=== PATIENT | female | born 1970 | race Two or more races ===

== ENCOUNTER 2021-09-08 12:34 | Emergency (ER) | payer MEDICARE, OTHER ==
[~2021-09-08] VITALS: Ht 165.1 cm; Wt 78.0 kg
[2021-09-08 12:46] VITALS: BP 132/82
== END 2021-09-08 14:01 | disposition home or self-care (01) ==
LOC: ER 12:42
DX: S61.412A Laceration without foreign body of left hand, initial encounter (principal); F32.A Depression, unspecified; Z87.39 Personal history of other diseases of the musculoskeletal system and connective tissue; W25.XXXA Contact with sharp glass, initial encounter; Y93.89 Activity, other specified; Y92.89 Other specified places as the place of occurrence of the external cause; Y99.8 Other external cause status

== ENCOUNTER 2022-05-30 17:28 | Emergency (ER) | payer MEDICARE, OTHER ==
[~2022-05-30] VITALS: Ht 165.1 cm; Wt 80.3 kg
--- NOTE | 2022-05-30 17:30 | NUR ---
RECEIVED PT 52 YRS FEMALE walking in from home s/p fall 2 day go c/o pain and ecchomosis on rt skin of buttock no difformity no pain with movement
--- NOTE | 2022-05-30 17:35 | NUR ---
SEEN by DR. REAL
--- NOTE | 2022-05-30 17:51 | NUR ---
Patient discharged to home in stable condition. Written and verbal after care instructions given. Patient verbalizes understanding of instruction.
[2022-05-30 17:55] VITALS: BP 142/80
== END 2022-05-30 17:55 | disposition home or self-care (01) ==
LOC: ER 17:45
DX: S70.11XA Contusion of right thigh, initial encounter (principal); F32.A Depression, unspecified; W18.30XA Fall on same level, unspecified, initial encounter; Y93.89 Activity, other specified; Y92.89 Other specified places as the place of occurrence of the external cause; Y99.8 Other external cause status

== ENCOUNTER 2022-12-30 15:09 | Emergency (ER) | payer MEDICARE, OTHER ==
[~2022-12-30] VITALS: Ht 165.1 cm; Wt 87.1 kg
[2022-12-30 17:27] VITALS: BP 128/89; TEMP 98.5; O2SAT 99
== END 2022-12-30 17:27 | disposition home or self-care (01) ==
LOC: ER 15:13
DX: M17.11 Unilateral primary osteoarthritis, right knee (principal); F32.A Depression, unspecified
CPT/HCPCS: 73564-TC

== ENCOUNTER → 2023-01-29 | Emergency (ER) | payer MEDICARE, OTHER ==
[~2023-01-29] VITALS: Ht 167.6 cm; Wt 63.5 kg
[~2023-01-29] MED LIST: HYDROCODONE/APAP 5/325MG TABLET PO ONE; IBUPROFEN 600 MG TABLET PO ONE
[2023-01-29 14:25] VITALS: TEMP 98.2
[2023-01-29 15:24] VITALS: BP 134/84; O2SAT 98
== END | disposition home or self-care (01) ==
LOC: ER 14:17
DX: M25.552 Pain in left hip (principal); F32.A Depression, unspecified; Z98.890 Other specified postprocedural states
CPT/HCPCS: 73502

== ENCOUNTER 2023-05-30 14:41 | Emergency (ER) | payer MEDICARE, OTHER ==
[~2023-05-30] VITALS: Ht 165.1 cm; Wt 85.7 kg
[2023-05-30 15:42] LABS: BASOPHILS % (AUTO) 0.2 % (0.0-2.0); EOSINOPHILS # (AUTO) 0.1 K/uL (0.0-0.7); EOSINOPHILS % (AUTO) 1.3 % (0.0-6.0); HEMATOCRIT 39 % (33-45); HEMOGLOBIN 13.3 g/dL (11.5-14.8); LYMPHOCYTES # (AUTO) 1.7 K/uL (0.8-4.8); LYMPHOCYTES % (AUTO) 15.4 % (20.0-44.0); MEAN CORPUSCULAR HEMOGLOBIN 33 PG (26.0-33.0); MEAN CORPUSCULAR HGB CONC 34 g/dl (31.0-36.0); MEAN CORPUSCULAR VOLUME 96 fL (82-100); MONOCYTES # (AUTO) 0.9 K/uL (0.1-1.30); MONOCYTES % (AUTO) 8.6 % (2.0-12.0); NEUTROPHILS # (AUTO) 8.2 K/uL (1.8-8.9); NEUTROPHILS % (AUTO) 74.5 % (43.0-81.0); PLATELET COUNT (AUTO) 281 K/uL (150-450); RED BLOOD CELL COUNT(AUTO) 4.04 MIL/uL (4.0-5.2); RED CELL DISTRIBUTION WIDTH 12.7 % (11.5-15.0)
[2023-05-30 15:56] LABS: ALBUMIN 3.6 g/dL (3.4-5.0); BILIRUBIN,TOTAL 0.4 mg/dL (0.2-1.0); CALCIUM, SERUM 8.8 mg/dL (8.5-10.1); CREATININE 0.7 mg/dL (0.6-1.3); POTASSIUM 3.8 mmol/L (3.5-5.1)
[2023-05-30 16:35] LABS: APPEARANCE,URINE CLEAR (CLEAR); BILIRUBIN,URINE NEGATIVE (NEGATIVE); BLOOD, URINE NEGATIVE Ery/uL (NEGATIVE); COLOR,URINE YELLOW (YELLOW); KETONES,URINE NEGATIVE (NEGATIVE); LEUKOCYTE ESTERASE ,URINE NEGATIVE (NEGATIVE); NITRITE, URINE NEGATIVE (NEGATIVE); PROTEIN,URINE NEGATIVE (NEGATIVE); UGLUCOSE NEGATIVE (NEGATIVE); UROBILINOGEN,URINE 0.2 EU/dL (0.2)
[2023-05-30 16:38] LABS: PREGNANCY TEST URINE QUAL NEGATIVE (NEGATIVE)
[2023-05-30 18:14] VITALS: BP 114/77; TEMP 98.2; O2SAT 98
== END 2023-05-30 18:15 | disposition home or self-care (01) ==
LOC: ER 14:43
DX: K62.5 Hemorrhage of anus and rectum (principal); R10.2 Pelvic and perineal pain; F32.A Depression, unspecified; Z98.890 Other specified postprocedural states
CPT/HCPCS: 36415; 80053-TC; 84703-TC; 85025-TC

== ENCOUNTER 2023-09-25 09:16 | Emergency (ER) | payer MEDICARE ==
[~2023-09-25] VITALS: Ht 165.1 cm; Wt 88.0 kg
[2023-09-25] MEDS ORDERED: IBUPROFEN 400 MG TABLET ONE (09:38)
[2023-09-25] MEDS ORDERED: ACETAMINOPHEN ES 500 MG TABLET ONE (09:38)
[2023-09-25] MEDS: IBUPROFEN 400 MG TABLET PO ONE (09:41)
[2023-09-25] MEDS: ACETAMINOPHEN ES 500 MG TABLET PO ONE (09:41)
[2023-09-25] MEDS ORDERED: KETO10TA2 PO (10:29)
[2023-09-25 10:50] VITALS: BP 127/68; TEMP 98.4; O2SAT 100
== END 2023-09-25 10:50 | disposition home or self-care (01) ==
LOC: ER 09:25
DX: S82.62XA Displaced fracture of lateral malleolus of left fibula, initial encounter for closed fracture (principal); F32.A Depression, unspecified; X50.1XXA Overexertion from prolonged static or awkward postures, initial encounter; Y93.89 Activity, other specified; Y92.89 Other specified places as the place of occurrence of the external cause; Y99.8 Other external cause status
CPT/HCPCS: 73610-TC

== ENCOUNTER 2023-10-01 12:57 | Emergency (ER) | payer MEDICARE ==
[~2023-10-01] VITALS: Ht 167.6 cm; Wt 74.4 kg
[~2023-10-01 12:57] MED LIST changes: -HYDROCODONE/APAP 5/325MG TABLET PO ONE; -IBUPROFEN 600 MG TABLET PO ONE; +KETO10TA2 PO
[2023-10-01 14:08] VITALS: BP 137/89; TEMP 98.7; O2SAT 100
== END 2023-10-01 14:09 | disposition home or self-care (01) ==
LOC: ER 12:57
DX: S82.892D Other fracture of left lower leg, subsequent encounter for closed fracture with routine healing (principal); R58 Hemorrhage, not elsewhere classified; F32.A Depression, unspecified; X58.XXXD Exposure to other specified factors, subsequent encounter

== ENCOUNTER 2024-08-16 11:15 | Inpatient (IN) | payer MEDICARE ==
[~2024-08-16] VITALS: Ht 165.1 cm; Wt 99.8 kg
[2024-08-16] MEDS ORDERED: ONDANSETRON HCL/PF 4 MG/2 ML VIAL ONE (11:47)
[2024-08-16] MEDS ORDERED: KETOROLAC TROMETHAMINE INJ 30 MG/ML VIAL ONE (11:47)
[2024-08-16] MEDS ORDERED: FAMOTIDINE/PF INJ 20 MG/2 ML VIAL IV ONE (11:48)
[2024-08-16 12:13] LABS: CARBON DIOXIDE 25 mmol/L (21-32); CHLORIDE 89 mmol/L (98-107); CREATININE 0.8 mg/dL (0.6-1.3); GLUCOSE 149 mg/dL (74-106); POTASSIUM 3.8 mmol/L (3.5-5.1); SODIUM SERUM 126 mmol/L (136-145); UREA NITROGEN, BLOOD 11 mg/dL (7-18)
[2024-08-16 12:19] LABS: ALANINE AMINOTRANSFERASE 28 U/L (12-78); ALBUMIN 3.7 g/dL (3.4-5.0); ALKALINE PHOSPHATASE 158 U/L (46-116); ASPARTATE AMINOTRANSFERASE 22 U/L (15-37); BILIRUBIN,DIRECT 0.1 mg/dL (0.0-0.2); BILIRUBIN,TOTAL 0.6 mg/dL (0.2-1.0); TOTAL PROTEIN, SERUM 7.5 g/dL (6.4-8.2)
[2024-08-16 12:22] LABS: LIPASE > 375 U/L (16-77)
[2024-08-16] MEDS: IV NS 0.9% 1,000 ML BAG IV ONE (12:27)
[2024-08-16] MEDS: FAMOTIDINE/PF INJ 20 MG/2 ML VIAL IV ONE (12:28)
[2024-08-16] MEDS: ONDANSETRON HCL/PF 4 MG/2 ML VIAL IVP ONE (12:29)
[2024-08-16] MEDS: KETOROLAC TROMETHAMINE INJ 30 MG/ML VIAL IV ONE (12:30)
[2024-08-16 12:31] LABS: BASOPHILS % (AUTO) 0.2 % (0.0-2.0); HEMATOCRIT 48 % (33-45); HEMOGLOBIN 16.4 g/dL (11.5-14.8); LYMPHOCYTES # (AUTO) 1.1 K/uL (0.8-4.8); LYMPHOCYTES % (AUTO) 6.7 % (20.0-44.0); MEAN CORPUSCULAR HEMOGLOBIN 34 PG (26.0-33.0); MEAN CORPUSCULAR HGB CONC 34 g/dl (31.0-36.0); MEAN CORPUSCULAR VOLUME 97 fL (82-100); MONOCYTES % (AUTO) 5.9 % (2.0-12.0); NEUTROPHILS % (AUTO) 87.2 % (43.0-81.0); PLATELET COUNT (AUTO) 290 K/uL (150-450); RED BLOOD CELL COUNT(AUTO) 4.89 MIL/uL (4.0-5.2); RED CELL DISTRIBUTION WIDTH 12.9 % (11.5-15.0); WHITE BLOOD COUNT (AUTO) 16.1 K/uL (4.3-11.0)
[2024-08-16 13:27] LABS: APPEARANCE,URINE CLEAR (CLEAR); BILIRUBIN,URINE NEGATIVE (NEGATIVE); BLOOD, URINE TRACE-INTA Ery/uL (NEGATIVE); COLOR,URINE YELLOW (YELLOW); KETONES,URINE 1+ mg/dL (NEGATIVE); LEUKOCYTE ESTERASE ,URINE NEGATIVE (NEGATIVE); NITRITE, URINE NEGATIVE (NEGATIVE); PH,URINE 6.5 (5.0-8.0); PROTEIN,URINE 2+ mg/dl (NEGATIVE); UGLUCOSE NEGATIVE (NEGATIVE); UROBILINOGEN,URINE 0.2 EU/dL (0.2)
[2024-08-16] MEDS ORDERED: MORPHINE SULFATE INJ 2 MG/ML DISP.SYRIN ONE (13:28)
[2024-08-16] MEDS: MORPHINE SULFATE INJ 2 MG/ML DISP.SYRIN IV ONE (13:32)
[2024-08-16] MEDS ORDERED: GABA600T12 PO (13:35)
[2024-08-16] MEDS ORDERED: MORP15TA PO (13:35)
[2024-08-16] MEDS ORDERED: CYCL10TA9 PO (13:35)
[2024-08-16] MEDS ORDERED: LEVO75TA7 PO (13:35)
[2024-08-16] MEDS ORDERED: DULO60CA64 PO (13:35)
[2024-08-16 14:09] LABS: ADD URINE CULTURE NO; BACTERIA,URINE None seen /HPF (None Seen); RBC,URINE 0-2 /HPF (0-2); SQUAMOUS EPITHELIAL CELL,UR Rare /HPF (None Seen); WBC,URINE NONE SEEN /HPF (0-3)
[2024-08-16] MEDS: HYDROMORPHONE 1 MG/1 ML DISP.SYRIN IV PRN ×2 (15:34→17:39)
[2024-08-16] MEDS ORDERED: LORAZEPAM 1 MG TABLET PO PRN (16:30)
[2024-08-16] MEDS ORDERED: MAGNESIUM HYDROXIDE 30 ML UDC PO PRN (16:30)
[2024-08-16] MEDS ORDERED: ONDANSETRON HCL/PF 4 MG/2 ML VIAL IVP PRN (16:30)
[2024-08-16 17:00] VITALS: BP 151/128; TEMP 98.4; O2SAT 98
[2024-08-16] MEDS: GABAPENTIN 300 MG CAPSULE PO SCH (17:21)
[2024-08-16] MEDS: IV LR 1000 ML 1,000 ML IV PRN (17:22)
[2024-08-16] MEDS: ACETAMINOPHEN 325 MG TABLET PO PRN (20:00)
[2024-08-16 22:01] VITALS: BP 162/78; TEMP 98.4; O2SAT 99
[2024-08-17 04:00] VITALS: BP 135/83; TEMP 98.8; O2SAT 95
[2024-08-17] MEDS: PANTOPRAZOLE 40 MG TABLET.DR PO SCH (07:39)
[2024-08-17 07:58] LABS: BASOPHILS % (AUTO) 0.2 % (0.0-2.0); EOSINOPHILS # (AUTO) 0.1 K/uL (0.0-0.7); EOSINOPHILS % (AUTO) 0.6 % (0.0-6.0); HEMATOCRIT 39 % (33-45); HEMOGLOBIN 13.4 g/dL (11.5-14.8); LYMPHOCYTES # (AUTO) 0.7 K/uL (0.8-4.8); LYMPHOCYTES % (AUTO) 6.8 % (20.0-44.0); MEAN CORPUSCULAR HEMOGLOBIN 33 PG (26.0-33.0); MEAN CORPUSCULAR HGB CONC 34 g/dl (31.0-36.0); MEAN CORPUSCULAR VOLUME 98 fL (82-100); MONOCYTES # (AUTO) 0.6 K/uL (0.1-1.30); MONOCYTES % (AUTO) 6.3 % (2.0-12.0); NEUTROPHILS # (AUTO) 8.5 K/uL (1.8-8.9); NEUTROPHILS % (AUTO) 86.1 % (43.0-81.0); PLATELET COUNT (AUTO) 193 K/uL (150-450); RED BLOOD CELL COUNT(AUTO) 4.02 MIL/uL (4.0-5.2); RED CELL DISTRIBUTION WIDTH 13.3 % (11.5-15.0); WHITE BLOOD COUNT (AUTO) 9.9 K/uL (4.3-11.0)
[2024-08-17 08:00] VITALS: BP 115/70; TEMP 98.6; O2SAT 94
[2024-08-17] MEDS: THIAMINE HCL 100 MG TABLET PO SCH (08:30)
[2024-08-17] MEDS: DULOXETINE HCL 30 MG CAPSULE.DR PO SCH (08:30)
[2024-08-17] MEDS: FOLIC ACID 1 MG TABLET PO SCH (08:31)
[2024-08-17] MEDS: LEVOTHYROXINE SODIUM 75 MCG TABLET PO SCH (08:31)
[2024-08-17 08:42] LABS: CALCIUM, SERUM 9.1 mg/dL (8.5-10.1); CARBON DIOXIDE 25 mmol/L (21-32); CHLORIDE 98 mmol/L (98-107); CREATININE 0.7 mg/dL (0.6-1.3); GLUCOSE 124 mg/dL (74-106); MAGNESIUM 1.6 mg/dL (1.8-2.4); PHOSPHORUS 2.8 mg/dL (2.5-4.9); POTASSIUM 4.2 mmol/L (3.5-5.1); SODIUM SERUM 133 mmol/L (136-145); UREA NITROGEN, BLOOD 12 mg/dL (7-18)
[2024-08-17 10:01] LABS: LIPASE > 375 U/L (16-77)
[2024-08-17] MEDS: HYDROMORPHONE 1 MG/1 ML DISP.SYRIN IV PRN (14:05)
[2024-08-17 16:00] VITALS: BP 123/72; TEMP 98.4; O2SAT 94
[2024-08-17 18:50] VITALS: BP 138/84; TEMP 98.5; O2SAT 94
[2024-08-17 20:00] VITALS: BP 129/79; TEMP 98.4; O2SAT 93
[2024-08-17] MEDS: ZOLPIDEM TARTRATE 5 MG TABLET PO PRN (21:40)
[2024-08-18 04:00] VITALS: BP 123/72; TEMP 98.8; O2SAT 94
[2024-08-18 07:23] LABS: BASOPHILS % (AUTO) 0.3 % (0.0-2.0); EOSINOPHILS # (AUTO) 0.3 K/uL (0.0-0.7); HEMATOCRIT 36 % (33-45); HEMOGLOBIN 12.1 g/dL (11.5-14.8); LYMPHOCYTES # (AUTO) 0.9 K/uL (0.8-4.8); MEAN CORPUSCULAR HEMOGLOBIN 34 PG (26.0-33.0); MEAN CORPUSCULAR HGB CONC 34 g/dl (31.0-36.0); MEAN CORPUSCULAR VOLUME 99 fL (82-100); MONOCYTES # (AUTO) 0.8 K/uL (0.1-1.30); MONOCYTES % (AUTO) 5.9 % (2.0-12.0); NEUTROPHILS # (AUTO) 11.1 K/uL (1.8-8.9); NEUTROPHILS % (AUTO) 84.8 % (43.0-81.0); PLATELET COUNT (AUTO) 205 K/uL (150-450); RED BLOOD CELL COUNT(AUTO) 3.61 MIL/uL (4.0-5.2); RED CELL DISTRIBUTION WIDTH 13.3 % (11.5-15.0); WHITE BLOOD COUNT (AUTO) 13.1 K/uL (4.3-11.0)
[2024-08-18 07:43] LABS: CALCIUM, SERUM 9.4 mg/dL (8.5-10.1); CREATININE 0.7 mg/dL (0.6-1.3); PHOSPHORUS 2.6 mg/dL (2.5-4.9)
[2024-08-18 08:00] VITALS: BP 134/74; TEMP 98; O2SAT 95
[2024-08-18] MEDS: HYDROMORPHONE 1 MG/1 ML DISP.SYRIN IV PRN (10:23)
[2024-08-18] MEDS: MORPHINE SULFATE IR 15 MG TABLET PO PRN (13:42)
[2024-08-18 16:00] VITALS: BP 129/77; TEMP 99.3; O2SAT 95
[2024-08-18] MEDS: METHOCARBAMOL (750MG) 750 MG TABLET PO PRN (18:47)
[2024-08-18 20:00] VITALS: BP 133/100; TEMP 97.9; O2SAT 100
[2024-08-19 04:34] VITALS: BP 122/88; TEMP 97.9; O2SAT 100
[2024-08-19 07:47] LABS: BASOPHILS % (AUTO) 0.3 % (0.0-2.0); EOSINOPHILS # (AUTO) 0.2 K/uL (0.0-0.7); EOSINOPHILS % (AUTO) 2.2 % (0.0-6.0); HEMATOCRIT 33 % (33-45); LYMPHOCYTES # (AUTO) 0.9 K/uL (0.8-4.8); LYMPHOCYTES % (AUTO) 8.2 % (20.0-44.0); MEAN CORPUSCULAR HEMOGLOBIN 33 PG (26.0-33.0); MEAN CORPUSCULAR HGB CONC 34 g/dl (31.0-36.0); MEAN CORPUSCULAR VOLUME 99 fL (82-100); MONOCYTES # (AUTO) 0.9 K/uL (0.1-1.30); MONOCYTES % (AUTO) 8.1 % (2.0-12.0); NEUTROPHILS # (AUTO) 8.8 K/uL (1.8-8.9); NEUTROPHILS % (AUTO) 81.2 % (43.0-81.0); PLATELET COUNT (AUTO) 184 K/uL (150-450); RED CELL DISTRIBUTION WIDTH 13.2 % (11.5-15.0); WHITE BLOOD COUNT (AUTO) 10.8 K/uL (4.3-11.0)
[2024-08-19 07:56] LABS: CREATININE 0.5 mg/dL (0.6-1.3); PHOSPHORUS 3.7 mg/dL (2.5-4.9); POTASSIUM 3.5 mmol/L (3.5-5.1)
[2024-08-19 08:00] VITALS: BP 128/82; TEMP 97.9; O2SAT 94
[2024-08-19] MEDS: LIDOCAINE 5% (PATCH) 1 EA PATCH TP SCH (09:02)
[2024-08-19 16:00] VITALS: BP 134/86; TEMP 98.4; O2SAT 95
[2024-08-19] MEDS ORDERED: LACTULOSE 10 G/15 ML UDC (PYXIS) PO PRN (18:00)
[2024-08-19] MEDS: POLYETHYLENE GLYCOL 3350 17 GM POWD.PACK PO SCH (18:16)
[2024-08-19 20:00] VITALS: BP 144/88; TEMP 97.7; O2SAT 99
[2024-08-20 04:00] VITALS: BP 166/96; TEMP 98.2; O2SAT 96
[2024-08-20 07:29] LABS: BASOPHILS % (AUTO) 0.2 % (0.0-2.0); EOSINOPHILS # (AUTO) 0.3 K/uL (0.0-0.7); EOSINOPHILS % (AUTO) 2.2 % (0.0-6.0); HEMATOCRIT 36 % (33-45); HEMOGLOBIN 11.9 g/dL (11.5-14.8); LYMPHOCYTES # (AUTO) 0.9 K/uL (0.8-4.8); LYMPHOCYTES % (AUTO) 7.2 % (20.0-44.0); MEAN CORPUSCULAR HEMOGLOBIN 33 PG (26.0-33.0); MEAN CORPUSCULAR HGB CONC 33 g/dl (31.0-36.0); MEAN CORPUSCULAR VOLUME 99 fL (82-100); MONOCYTES # (AUTO) 1.2 K/uL (0.1-1.30); MONOCYTES % (AUTO) 9.3 % (2.0-12.0); NEUTROPHILS # (AUTO) 10.2 K/uL (1.8-8.9); NEUTROPHILS % (AUTO) 81.1 % (43.0-81.0); PLATELET COUNT (AUTO) 247 K/uL (150-450); RED BLOOD CELL COUNT(AUTO) 3.63 MIL/uL (4.0-5.2); WHITE BLOOD COUNT (AUTO) 12.6 K/uL (4.3-11.0)
[2024-08-20 07:40] LABS: ALBUMIN 2.8 g/dL (3.4-5.0); BILIRUBIN,TOTAL 0.7 mg/dL (0.2-1.0); CALCIUM, SERUM 9.1 mg/dL (8.5-10.1); CREATININE 0.5 mg/dL (0.6-1.3); MAGNESIUM 2.3 mg/dL (1.8-2.4); POTASSIUM 3.4 mmol/L (3.5-5.1)
[2024-08-20 08:50] VITALS: BP 154/90; TEMP 97.7; O2SAT 94
[2024-08-20] MEDS ORDERED: POLYETHYLENE GLYCOL 3350 17 GM POWD.PACK PO SCH (09:00)
[2024-08-20] MEDS: POTASSIUM CHLORIDE 20 MEQ TAB.PRT.SR PO SCH (10:25)
== END 2024-08-20 12:55 | disposition home or self-care (01) | DRG 439 ==
LOC: ER 11:20 → MEDSG1 16:36
PROVIDERS: ADMIT Nurse Practitioner Family; ATTEND Student in an Organized Health Care Education/Training Program
DX: K85.90 Acute pancreatitis without necrosis or infection, unspecified (principal); E87.1 Hypo-osmolality and hyponatremia; J98.11 Atelectasis; F32.A Depression, unspecified; F10.10 Alcohol abuse, uncomplicated; Y90.9 Presence of alcohol in blood, level not specified; G89.29 Other chronic pain; R63.1 Polydipsia; G62.9 Polyneuropathy, unspecified; Z98.1 Arthrodesis status; K76.0 Fatty (change of) liver, not elsewhere classified; Z79.890 Hormone replacement therapy; Z79.899 Other long term (current) drug therapy; D72.829 Elevated white blood cell count, unspecified; F39 Unspecified mood [affective] disorder; K59.00 Constipation, unspecified; M51.379 Other intervertebral disc degeneration, lumbosacral region without mention of lumbar back pain or lower extremity pain; M48.07 Spinal stenosis, lumbosacral region
CPT/HCPCS: 36415; 71045-TC; 74018; 80048-TC; 80053-TC; 80076-TC; 81001; 82962-TC; 83690-TC; 83735-TC; 84100-TC; 84484-TC; 85025-TC; 87086-TC; A4223; G0378; J1171; J1308; J1885; J2270; J2405; J7030; J7040; J7120